=== PATIENT | female | born 1980 | race Caucasian/White ===

== ENCOUNTER → 2020-03-20 | Outpatient (CLI) | payer OTHER, BC | LOC: LAB SHORT 10:30 → LAB EV 10:30 | DX: R30.9 Painful micturition, unspecified (principal) | CPT/HCPCS: 87086 ==

== ENCOUNTER 2023-11-21 18:55 | Emergency (ER) | payer OTHER, BC ==
[~2023-11-21] VITALS: Ht 165.1 cm; Wt 61.2 kg
[2023-11-21 19:28] VITALS: BP 135/90
[2023-11-21] MEDS ORDERED: ALBU90OI INH (19:49)
[2023-11-21] MEDS ORDERED: Ofloxacin 0.3% Otic Soln 5 ML BOTHEARS ONE (20:15)
[2023-11-21] MEDS ORDERED: OCUFLOX510 BOTHEARS (20:17)
== END 2023-11-21 20:51 | disposition home or self-care (01) ==
LOC: ER 18:55
DX: H60.93 Unspecified otitis externa, bilateral (principal); Z79.899 Other long term (current) drug therapy
CPT/HCPCS: 99282; A9270